=== PATIENT | female | born 1980 | race Caucasian/White ===

== ENCOUNTER 2019-09-28 10:07 | Emergency (ER) | payer OTHER ==
[~2019-09-28] VITALS: Ht 160 cm; Wt 90.9 kg
[2019-09-28 10:28] VITALS: BP 131/80
== END 2019-09-28 11:46 | disposition home or self-care (01) ==
LOC: ER 10:07
DX: M79.601 Pain in right arm (principal); Z88.0 Allergy status to penicillin; V49.40XA Driver injured in collision with unspecified motor vehicles in traffic accident, initial encounter; Y93.89 Activity, other specified; Y92.89 Other specified places as the place of occurrence of the external cause; Y99.8 Other external cause status
CPT/HCPCS: 99281